=== PATIENT | female | born 1960 | race African-American/Black ===

== ENCOUNTER 2017-03-15 10:37 | Emergency (ER) | payer OTHER ==
[~2017-03-15] VITALS: Ht 162.6 cm; Wt 80.9 kg
[2017-03-15 11:32] LABS: CALCIUM 9.4 mg/dL (8.5-10.1); CARBON DIOXIDE 32.7 mmol/L (21-32); CREATININE SERUM 1.2 mg/dL (0.6-1.0); POTASSIUM SERUM 4.7 mmol/L (3.5-5.1)
[2017-03-15 11:33] LABS: BASOPHIL % 0.3 % (0-2); PLATELET COUNT 229 x10^3mcL (130-400); RED CELL DISTRIBUTION WIDTH 14.3 % (11.5-14.5)
[2017-03-15 11:37] LABS: ALBUMIN 3.7 g/dL (3.4-5.0); BILIRUBIN TOTAL 0.3 mg/dL (0.20-1.00); TOTAL PROTEIN, SERUM 7.9 g/dL (6.4-8.2)
[2017-03-15 12:37] VITALS: BP 121/81
== END 2017-03-15 12:37 | disposition home or self-care (01) ==
LOC: ED 10:37
PROVIDERS: Emergency Medicine
DX: H81.10 Benign paroxysmal vertigo, unspecified ear (principal); I10 Essential (primary) hypertension
CPT/HCPCS: 36415